=== PATIENT | female | born 1960 | race Caucasian/White ===

== ENCOUNTER → 2016-10-21 | Outpatient (CLI) | payer BC ==
--- NOTE | 2016-10-21 14:26 | MY ---
EXAMINATION: Bilateral digital mammography utilizing CAD. HISTORY: Screening exam. Comparison is made to previous studies dated 10/18/2015, 10/11/2014. FINDINGS: Bilateral scattered fibroglandular densities. No suspicious calcifications, masses or ar chitectural distortions. No pathologic appearing lymph nodes, no abnormal skin thickening or nippl e inversion. CAD highlighted regions appear normal at this time. IMPRESSION: BI-RADS category I - negative mammogram. Continued screening according to ACR-ACS gu idelines suggested. THE FALSE-NEGATIVE RATE OF MAMMOGRAM IS APPROXIMATELY 10%. MANAGEMENT OF A PALPABLE ABNORMALITY MUST BE BASED UPON CLINICAL GROUNDS. SENSITIVITY FOR DETECTION OF ABNORMALITIES IN DENSE BREASTS IS LOW. NOTE: A letter will be sent to the patient regarding findings. [facility] -- KARLEY Hodgson [phone] - FAX [phone]
== END ==
LOC: MW.MAM 09:50
PROVIDERS: ATTEND Nurse Practitioner Women's Health
DX: Z12.31 Encounter for screening mammogram for malignant neoplasm of breast (principal)
CPT/HCPCS: G0202; G0202-26

== ENCOUNTER → 2016-11-22 | Outpatient (CLI) | payer BC | LOC: MW.CHOBGYN 13:59 | PROVIDERS: ATTEND Nurse Practitioner Women's Health | DX: R10.13 Epigastric pain (principal) | CPT/HCPCS: 36415; 85025 ==

== ENCOUNTER → 2016-11-26 | Outpatient (CLI) | payer BC | END | disposition home or self-care (01) | LOC: MW.CHOBGYN 16:04 | PROVIDERS: ATTEND Nurse Practitioner Women's Health | DX: R10.13 Epigastric pain (principal) | CPT/HCPCS: 87338 ==

== ENCOUNTER 2017-01-17 08:22 | Day surgery (SDC) | payer BC ==
[~2017-01-17 08:22] MED LIST: Lactated Ringers 1,000 ML IV SCH; Lidocaine 2% 5 ML SDV ONE; Propofol 200 MG/20 ML SDV ONE
--- NOTE | 2017-01-17 09:08 | PCM.PREANE ---
Preanesthetic Assessment - Anesthesia/Transfusion/Family Hx Anesthesia History: Prior Anesthesia Reaction Other Type of Anesthesia Reaction Comment: very claustrophobic, no masks Family History of Anesthesia Reaction: No Transfusion History: No Prior Transfusion(s) - Review of Systems General: No Symptoms Pulmonary: No Symptoms Cardiovascular: No Symptoms Gastrointestinal: No symptoms Neurological: No Symptoms Other: Reports: None - Physical Assessment NPO Status Date: 01/16/17 NPO Status Time: 22:30 O2 Sat by Pulse Oximetry: 97 Respiratory Rate: 16 Vital Signs: Last Vital Signs Temp 36.6 C 01/17/17 08:53 Pulse 79 01/17/17 08:53 Resp 16 01/17/17 08:53 BP 136/86 01/17/17 08:53 Pulse Ox 97 01/17/17 08:53 Height: 1.7 m Weight: 111.584 kg ASA Class: 2 Mental Status: Alert & Oriented x3 Airway Class: Mallampati = 2 Dentition: Reports: Normal Dentition ROM/Head Extension: Full Lungs: Clear to auscultation, Normal respiratory effort Cardiovascular: Regular Rate, Regular Rhythm - Allergies Allergies/Adverse Reactions: Allergies Allergy/AdvReac Type Severity Reaction Status Date / Time bupropion HCl Allergy Nausea and Verified 01/14/17 14:01 [From Wellbutrin] Vomiting venlafaxine HCl Allergy Depression Verified 01/14/17 14:01 [From Effexor] - Anesthesia Plan Pre-Op Medication Ordered: None - Acknowledgements Anesthesia Type Planned: MAC Pt an Appropriate Candidate for the Planned Anesthesia: Yes Alternatives and Risks of Anesthesia Discussed w Pt/Guardian: Yes Pt/Guardian Understands and Agrees with Anesthesia Plan: Yes PreAnesthesia Questionnaire HEENT History: Reports: Allergic Rhinitis Other HEENT History: wears glasses Cardiovascular History: Reports: Hypertension Respiratory History: Reports: Asthma, Sleep Apnea Gastrointestinal History: Reports: Chronic Diarrhea, GERD, Hemorrhoids Genitourinary History: Reports: None Other Genitourinary History: vaiginal cyst CERTIFIED NUTRITIONIST History: Reports: None Musculoskeletal History: Reports: Fracture, Fibromyalgia Other Musculoskeletal History: hx of fx toe Neurological History: Reports: Headaches, Chronic Other Neuro History: has stress headaches, hx of motion sickness Psychiatric History: Reports: Anxiety, Depression, Other (See Below) Other Psychiatric History: very claustrophobic Endocrine/Metabolic History: Reports: Obesity/BMI 30+ Hematologic History: Reports: None Immunologic History: Reports: None Oncologic (Cancer) History: Reports: None Dermatologic History: Reports: None - Past Surgical History Head Surgeries/Procedures: Reports: None HEENT Surgical History: Reports: Tonsillectomy GI Surgical History: Reports: Colonoscopy Female Surgical History: Reports: Hysterectomy, Salpingo-Oophorectomy, Other (See Below) Other Female Surgeries/Procedures: excision of cyst from vaginal wall Musculoskeletal Surgical History: Reports: None - SUBSTANCE USE Smoking Status *Q: Former Smoker Recreational Drug Use History: No - HOME MEDS Home Medications: Home Meds Citalopram Hydrobromide [Celexa] 40 mg PO BEDTIME 10/20/15 [History] Losartan [Cozaar] 100 mg PO DAILY 10/20/15 [History] Vit D3/Folic Acid/B2/B6/B12 [Folgard Tablet] 1 each PO 10/20/15 [History] Albuterol [Ventolin HFA] 1 - 2 puff INH Q4H PRN 01/14/17 [History] Calcium Carbonate/Vitamin D3 [Calcium 1,000 + D3 Caplet] 1 tab PO BID 01/14/17 [ History] Hydrochlorothiazide 12.5 mg PO BID 01/14/17 [History] L.acidoph,Paracasei, B.lactis [Probiotic] 1 cap PO DAILY 01/14/17 [History] LORazepam 0.5 - 1 mg PO TID PRN 01/14/17 [History] Montelukast Sodium 10 mg PO DAILY 01/14/17 [History] Omeprazole 40 mg PO DAILY 01/14/17 [History] Sucralfate [Carafate] 1,000 mg PO QID 01/14/17 [History] Vitamin B Complex 1 tab PO BID 01/14/17 [History] - CURRENT (IN HOUSE) MEDS Current Meds: Current Medications Lactated Ringer's (Ringers, Lactated) 1,000 mls @ 125 mls/hr IV ASDIRECTED SANDRA Last Admin: 01/17/17 08:46 Dose: 125 mls/hr Discontinued Medications Lidocaine (Xylocaine-Mpf 2%) Confirm Administered Dose 5 ml .ROUTE .STK-MED ONE Stop: 01/17/17 07:35 Propofol (Diprivan 20 Ml) Confirm Administered Dose 400 mg .ROUTE .STK-MED ONE Stop: 01/17/17 07:36
[2017-01-17] MEDS ORDERED: Propofol 200 MG/20 ML SDV ONE ×2 (09:50→10:03)
[2017-01-17] MEDS ORDERED: Lactated Ringers 1,000 ML IV SCH (10:30)
--- NOTE | 2017-01-17 10:30 | PCM.OPNOTE ---
- General Post-Op/Procedure Note Date of Surgery/Procedure: 01/17/17 Operative Procedure(s): Esophagogastroduodenoscopy with duodenal and gastric biopsy. Colonoscopy. Pre Op Diagnosis: Epigastric pain. Rectal bleeding. Post-Op Diagnosis: Duodenitis and gastritis. No evidence of colonic neoplasia. Anesthesia Technique: MAC (ASA II) Primary Surgeon: Jose M Castro Condition: Good Free Text/Narrative:: DICTATION 522540 and [id number] CPT code 06203 and 51449
--- NOTE | 2017-01-17 10:49 | PCM48HPAN ---
Post Anesthesia Note - EVALUATION WITHIN 48HRS OF ANESTHETIC Vital Signs in Normal Range: Yes Patient Participated in Evaluation: Yes Respiratory Function Stable: Yes Airway Patent: Yes Cardiovascular Function Stable: Yes Hydration Status Stable: Yes Pain Control Satisfactory: Yes Nausea and Vomiting Control Satisfactory: Yes Mental Status Recovered: Yes
--- NOTE | 2017-01-17 10:49 | PCM.POSTAN ---
POST ANESTHESIA ASSESSMENT - MENTAL STATUS Mental Status: alert, oriented - RESPIRATORY Respiratory Status: respiratory rate WNL, airway patent, O2 saturation stable - CARDIOVASCULAR CV Status: pulse rate WNL, blood pressure stable - GASTROINTESTINAL GI Status: no symptoms - PAIN Pain Score: 0 - POST OP HYDRATION Hydration Status: adequate & stable
[2017-01-17 10:58] VITALS: BP 132/59
--- NOTE | 2017-01-17 14:54 | OR ---
SURGEON: Jose M Castro M.D. DATE OF PROCEDURE: 01/17/2017 OPERATION PERFORMED: Colonoscopy. ANESTHESIA: MAC. ASA CLASSIFICATION: II. PREOPERATIVE DIAGNOSIS: Rectal bleeding. POSTOPERATIVE DIAGNOSIS: No acute colonic neoplasia. DESCRIPTION OF PROCEDURE: With the patient having completed esophagogastroduodenoscopy with biopsy, she was now positioned in the left lateral decubitus position. The colonoscope was inserted into the rectum and advanced with minimal difficulty to the cecum. The cecum was identified by internal landmarks and external pressure. The colonoscope was retroflexed to visualize the ascending colon from below, then straightened, and slowly withdrawn. The cecum, ascending colon, hepatic flexure, transverse colon, splenic flexure, descending colon, sigmoid colon, and rectum were very well visualized. No tumors, polyps, diverticula, or angiodysplastic changes were noted. Once the colonoscope was withdrawn to the rectum, it was retroflexed to visualize the anal orifice from above. No polyps or tumors were seen and there were no acute hemorrhoidal changes. The colonoscope was then straightened, the rectum aspirated, and the colonoscope removed. The patient tolerated the procedure well and was taken to recovery room in stable condition. KIKI TANNER /[id number]
--- NOTE | 2017-01-17 14:57 | OR ---
SURGEON: Jose M Castro M.D. DATE OF PROCEDURE: 01/17/2017 OPERATION PERFORMED: Esophagogastroduodenoscopy with biopsy. ANESTHESIA: MAC. ASA CLASSIFICATION: II. PREOPERATIVE DIAGNOSIS: Persistent epigastric pain. POSTOPERATIVE DIAGNOSIS: Mild duodenitis and gastritis. DESCRIPTION OF PROCEDURE: The patient was taken to the endoscopy room and positioned on the endoscopy table in the supine position. Time-out was called for appropriate identification of the patient and procedure. Monitored anesthesia care was provided. The bite block was placed between the patient's teeth. The gastroscope was inserted through the bite block and advanced through the esophagus and stomach into the duodenum where examination was carried out in a retrograde fashion. The duodenum does show some mild inflammatory changes. Duodenal biopsies were obtained. One polyp was encountered in the duodenum and this was also removed with cold biopsy forceps. The gastroscope was withdrawn into the stomach and antral biopsies were obtained to look for the presence of the Helicobacter pylori. The patient did demonstrate a mild gastritis. The gastroscope was then retroflexed to visualize the proximal stomach. The patient does have a hiatal hernia. No ulcers were seen proximally and no tumors were noted. The gastroscope was then straightened, the stomach aspirated, and the scope slowly withdrawn. The patient does have a hiatal hernia that can also be seen from above. The GE junction was well defined and shows no acute inflammatory changes. The esophagus demonstrated good contractility. No mid or proximal lesions were seen. The gastroscope was then further withdrawn. The vocal cords were briefly visualized, noted to move symmetrically. No obvious vocal cord lesions were identified. The gastroscope was then removed with the patient having tolerated this portion of the procedure well. Following colonoscopy, she was taken to recovery room in stable condition. KIKI TANNER /[id number]
== END 2017-01-17 11:13 | disposition home or self-care (01) ==
LOC: MW.SDS 08:22
PROVIDERS: ATTEND Surgery
PROC: 0DB98ZX Excision of Duodenum, Via Natural or Artificial Opening Endoscopic, Diagnostic (ICD-10-PCS; principal; 2017-01-17)
PROC: 0DB68ZX Excision of Stomach, Via Natural or Artificial Opening Endoscopic, Diagnostic (ICD-10-PCS; 2017-01-17)
PROC: 0DJD8ZZ Inspection of Lower Intestinal Tract, Via Natural or Artificial Opening Endoscopic (ICD-10-PCS; 2017-01-17)
DX: K29.50 Unspecified chronic gastritis without bleeding (principal); K31.7 Polyp of stomach and duodenum; K31.89 Other diseases of stomach and duodenum; K44.9 Diaphragmatic hernia without obstruction or gangrene; K21.9 Gastro-esophageal reflux disease without esophagitis; F41.9 Anxiety disorder, unspecified; J45.909 Unspecified asthma, uncomplicated; M79.7 Fibromyalgia; I10 Essential (primary) hypertension; E66.9 Obesity, unspecified; G47.30 Sleep apnea, unspecified; E55.9 Vitamin D deficiency, unspecified; E53.8 Deficiency of other specified B group vitamins; F32.9 Major depressive disorder, single episode, unspecified; Z88.8 Allergy status to other drugs, medicaments and biological substances; Z79.899 Other long term (current) drug therapy; Z98.51 Tubal ligation status; Z90.710 Acquired absence of both cervix and uterus; Z90.722 Acquired absence of ovaries, bilateral; Z90.89 Acquired absence of other organs; Z98.890 Other specified postprocedural states; Z80.0 Family history of malignant neoplasm of digestive organs; Z87.891 Personal history of nicotine dependence; Z68.38 Body mass index [BMI] 38.0-38.9, adult
CPT/HCPCS: 43239; 45378; 88305; 88312; J7120; 00740; J2704

== ENCOUNTER 2017-05-08 06:31 | Day surgery (SDC) | payer BC ==
[~2017-05-08 06:31] MED LIST changes: -Lidocaine 2% 5 ML SDV ONE; -Propofol 200 MG/20 ML SDV ONE; +cefOXitin 2 GM in Premix Bag 1 BAG IV ONE
[2017-05-08] MEDS ORDERED: ceFAZolin 1 GM Vial ONE (07:17)
[2017-05-08] MEDS ORDERED: Bupivacaine 0.5% 10 ML SDV ONE (07:17)
[2017-05-08] MEDS ORDERED: Midazolam 1 MG/ML 2 ML SDV ONE (07:28)
[2017-05-08] MEDS ORDERED: Propofol 200 MG/20 ML SDV ONE (07:28)
[2017-05-08] MEDS ORDERED: Lidocaine 2% 5 ML SDV ONE (07:28)
[2017-05-08] MEDS ORDERED: fentaNYL 100 MCG/2 ML SDV ONE (07:28)
[2017-05-08] MEDS ORDERED: Ketorolac 30 MG/ML SDV ONE (07:29)
[2017-05-08] MEDS ORDERED: Succinylcholine/Normal Saline 200 MG/10 ML Syringe ONE (07:29)
[2017-05-08] MEDS ORDERED: Neostigmine Methylsulfate 1 MG/ML 5 ML Syringe ONE (07:29)
[2017-05-08] MEDS ORDERED: Ondansetron 4 MG/2 ML SDV ONE ×2 (07:29→08:15)
[2017-05-08] MEDS ORDERED: Scopolamine 1.5 MG Transdermal Patch TRDERM PRN (07:40)
--- NOTE | 2017-05-08 07:40 | PCM.PREANE ---
Preanesthetic Assessment - Anesthesia/Transfusion/Family Hx Anesthesia History: Prior Anesthesia Without Reaction Other Type of Anesthesia Reaction Comment: states she "gets nauseated after surgery" Family History of Anesthesia Reaction: No Transfusion History: No Prior Transfusion(s) Intubation History: Unknown - Review of Systems General: No Symptoms Pulmonary: No Symptoms Cardiovascular: No Symptoms Gastrointestinal: Abdominal Pain Neurological: No Symptoms Other: Reports: None - Physical Assessment O2 Sat by Pulse Oximetry: 98 Respiratory Rate: 16 Vital Signs: Last Vital Signs Temp 36.1 C 05/08/17 06:47 Pulse 62 05/08/17 06:47 Resp 16 05/08/17 06:47 BP 120/65 05/08/17 06:47 Pulse Ox 98 05/08/17 06:47 Weight: 107.501 kg ASA Class: 3 Mental Status: Alert & Oriented x3 Airway Class: Mallampati = 3 Dentition: Reports: Normal Dentition Thyro-Mental Finger Breadths: 3 Mouth Opening Finger Breadths: 2 ROM/Head Extension: Full Lungs: Clear to Auscultation, Normal Respiratory Effort Cardiovascular: Regular Rate, Regular Rhythm - Allergies Allergies/Adverse Reactions: Allergies Allergy/AdvReac Type Severity Reaction Status Date / Time bupropion HCl Allergy Nausea and Verified 01/14/17 14:01 [From Wellbutrin] Vomiting venlafaxine HCl Allergy Depression Verified 01/14/17 14:01 [From Effexor] - Blood Blood Available: No - Anesthesia Plan Pre-Op Medication Ordered: None Beta Jose Alfredo: Metoprolol Med Last Dose Date: 05/07/17 Med Last Dose Time: 19:00 - Acknowledgements Anesthesia Type Planned: General Anesthesia Pt an Appropriate Candidate for the Planned Anesthesia: Yes Alternatives and Risks of Anesthesia Discussed w Pt/Guardian: Yes Pt/Guardian Understands and Agrees with Anesthesia Plan: Yes PreAnesthesia Questionnaire HEENT History: Reports: Allergic Rhinitis, Other (See Below) Other HEENT History: wears glasses Cardiovascular History: Reports: Arrhythmia (paroxysmal atrial tachy last month , cardiac tests OK), Hypertension Respiratory History: Reports: COPD, Sleep Apnea, SOB Other Respiratory History: "moderate COPD", does not use CPAP Gastrointestinal History: Reports: Chronic Constipation, GERD, Hemorrhoids Genitourinary History: Reports: None ENGLISH ADJUNCT FACULTY History: Reports: Musculoskeletal History: Reports: Fracture, Fibromyalgia Other Musculoskeletal History: hx of fx toe Neurological History: Reports: Headaches, Chronic Other Neuro History: has stress headaches, hx of motion sickness Psychiatric History: Reports: Anxiety, Depression, Other (See Below) Other Psychiatric History: very claustrophobic Endocrine/Metabolic History: Reports: Obesity/BMI 30+ Hematologic History: Reports: None Immunologic History: Reports: None Oncologic (Cancer) History: Reports: None Dermatologic History: Reports: None - Past Surgical History Head Surgeries/Procedures: Reports: None HEENT Surgical History: Reports: Tonsillectomy GI Surgical History: Reports: Colonoscopy, EGD Female Surgical History: Reports: Hysterectomy, Salpingo-Oophorectomy, Other (See Below) Other Female Surgeries/Procedures: excision of cyst from vaginal wall Musculoskeletal Surgical History: Reports: None - SUBSTANCE USE Smoking Status *Q: Former Smoker (quit many years ago) Recreational Drug Use History: No - HOME MEDS Home Medications: Home Meds Citalopram Hydrobromide [Celexa] 40 mg PO BEDTIME 10/20/15 [History] Losartan [Cozaar] 100 mg PO DAILY 10/20/15 [History] Vit D3/Folic Acid/B2/B6/B12 [Folgard Tablet] 1 each PO DAILY 10/20/15 [History] Albuterol [Ventolin HFA] 1 - 2 puff INH Q4H PRN 01/14/17 [History] Calcium Carbonate/Vitamin D3 [Calcium 1,000 + D3 Caplet] 1 tab PO BID 01/14/17 [ History] Hydrochlorothiazide 0.5 tab PO BID 01/14/17 [History] L.acidoph,Paracasei, B.lactis [Probiotic] 1 cap PO DAILY 01/14/17 [History] LORazepam 0.5 - 1 mg PO TID PRN 01/14/17 [History] Montelukast Sodium 10 mg PO DAILY 01/14/17 [History] Omeprazole 40 mg PO DAILY 01/14/17 [History] Vitamin B Complex 1 tab PO BID 01/14/17 [History] Tiotropium [place] [Spiriva Respimat] 1 puff INH DAILY 05/06/17 [History] - CURRENT (IN HOUSE) MEDS Current Meds: Current Medications Lactated Ringer's (Ringers, Lactated) 1,000 mls @ 125 mls/hr IV ASDIRECTED SANDRA Discontinued Medications Bupivacaine HCl (Sensorcaine-Mpf 0.5%) Confirm Administered Dose 30 ml .ROUTE .STK-MED ONE Stop: 05/08/17 07:18 Cefazolin Sodium (Ancef) Confirm Administered Dose 1 gm .ROUTE .STK-MED ONE Stop: 05/08/17 07:18 Fentanyl (Sublimaze) Confirm Administered Dose 300 mcg .ROUTE .STK-MED ONE Stop: 05/08/17 07:29 Glycopyrrolate () Confirm Administered Dose 1 mg .ROUTE .STK-MED ONE Stop: 05/08/17 07:30 Cefoxitin Sodium 2 gm/ Premix 50 mls @ 100 mls/hr IV ONETIME ONE Stop: 05/08/17 06:29 Cefoxitin Sodium (Mefoxin In Dextrose,Iso-Osm 2 Gm/50 Ml) Confirm Administered Dose 50 mls @ as directed .ROUTE .STK-MED ONE Stop: 05/08/17 07:27 Ketorolac Tromethamine (Toradol) Confirm Administered Dose 30 mg .ROUTE .STK- MED ONE Stop: 05/08/17 07:30 Lidocaine (Xylocaine-Mpf 2%) Confirm Administered Dose 10 ml .ROUTE .STK-MED ONE Stop: 05/08/17 07:29 Midazolam HCl (Versed 1 Mg/Ml) Confirm Administered Dose 2 mg .ROUTE .STK-MED ONE Stop: 05/08/17 07:29 Neostigmine Methylsulfate (Neostigmine) Confirm Administered Dose 5 mg .ROUTE .STK-MED ONE Stop: 05/08/17 07:30 Ondansetron HCl (Zofran) Confirm Administered Dose 4 mg .ROUTE .STK-MED ONE Stop: 05/08/17 07:30 Propofol (Diprivan 20 Ml) Confirm Administered Dose 400 mg .ROUTE .STK-MED ONE Stop: 05/08/17 07:29 Succinylcholine Chloride (Succinylcholine In Ns Pf) Confirm Administered Dose 200 mg .ROUTE .STK-MED ONE Stop: 05/08/17 07:30
[2017-05-08] MEDS ORDERED: HYDROmorphone 2 MG/ML Syringe ONE (08:18)
[2017-05-08] MEDS ORDERED: ePHEDrine 50 MG/ML SDV ONE (08:27)
[2017-05-08] MEDS ORDERED: HYDROmorphone 2 MG/ML Syringe IVPUSH ONE (08:39)
[2017-05-08] MEDS ORDERED: fentaNYL 100 MCG/2 ML SDV IVPUSH PRN (08:39)
[2017-05-08] MEDS ORDERED: Labetalol 100 MG/20 ML MDV ONE (08:40)
[2017-05-08] MEDS ORDERED: Acetaminophen/HYDROcodone 325-5 MG Tab PO PRN (09:16)
[2017-05-08] MEDS ORDERED: Morphine 10 MG/ML Syringe IVPUSH PRN (09:16)
[2017-05-08] MEDS ORDERED: Benzocaine/Cetylpyridinium/Menthol Lozenge MUCMEM PRN (09:22)
--- NOTE | 2017-05-08 09:44 | PCM.POSTAN ---
POST ANESTHESIA ASSESSMENT - MENTAL STATUS Mental Status: Alert, Oriented - RESPIRATORY Respiratory Status: Respiratory Rate WNL, Airway Patent, O2 Saturation Stable - CARDIOVASCULAR CV Status: Pulse Rate WNL - GASTROINTESTINAL GI Status: No Symptoms - PAIN Pain Score: 0 - POST OP HYDRATION Hydration Status: Adequate & Stable - OBSERVATIONS Free Text/Narrative:: no anesthesia problems
--- NOTE | 2017-05-08 10:06 | PCM.OPNOTE ---
- General Post-Op/Procedure Note Date of Surgery/Procedure: 05/08/17 Operative Procedure(s): Laparoscopic cholecystectomy Pre Op Diagnosis: Symptomatic cholelithiasis Post-Op Diagnosis: Same Anesthesia Technique: General ET Tube (ASA III) Primary Surgeon: Jose M Castro Program Research Specialist: Rodrigo Cao Fluid Replacement, Intraop: 1,400 EBL in mLs: 10 Condition: Good Free Text/Narrative:: Intake & Output 05/07/17 05/08/17 05/08/17 19:59 03:59 11:59 Intake Total 1550 Output Total 225 Balance 1325 Dictation [id number] CPT CODE [id number]
--- NOTE | 2017-05-08 10:13 | OR ---
SURGEON: Jose M Castro M.D. DATE OF PROCEDURE: 05/08/2017 OPERATION PERFORMED: Laparoscopic cholecystectomy. PAINTING MANAGER: Dr. Cao, PGY-2. ANESTHESIA: General endotracheal. ASA CLASSIFICATION: III. PREOPERATIVE DIAGNOSIS: Symptomatic cholelithiasis. POSTOPERATIVE DIAGNOSIS: Symptomatic cholelithiasis. ESTIMATED BLOOD LOSS: 10 mL. INTRAOPERATIVE FLUID REPLACEMENT: 1400 mL of crystalloid. DESCRIPTION OF PROCEDURE: The patient was taken to the operating room and placed on the operating table in the supine position. Time-out was called for appropriate identification of the patient and procedure. Thigh-high TEDs and sequential compression boots were placed. Following satisfactory attainment of general endotracheal anesthesia, a Boone catheter was placed in the patient's urinary bladder. The abdomen was prepped with DuraPrep solution. Sterile drapes were applied. The skin just below the umbilicus was infiltrated with 0.5% Marcaine solution. The skin incision was made and deepened into the subcutaneous tissue obtaining hemostasis with the use of electrocautery. The Veress needle was introduced into the peritoneal cavity. Saline drop test was positive. Carbon dioxide pneumoperitoneum was established with the release set at 13 cm of water. Once satisfactory pneumoperitoneum was established, a 12 mm subxiphoid, 5 mm midclavicular, and 5 mm anterior axillary ports were placed. Each incision was preemptively infiltrated with 0.5% Marcaine solution. The patient was now positioned with her feet down and rolled to the left. The gallbladder was grasped and the cholecystohepatic triangle was dissected free identifying the cystic duct and cystic artery in serial fashion. Critical view of each structure was obtained before hemoclipping. After these structures had been hemoclipped and divided with the laparoscopic Metzenbaum scissor, the gallbladder was dissected away from its bed using electrocautery. There was no spill of bile or stone. No bleeding was noted. Once the gallbladder was amputated, this was placed in an Endopouch. The bed of the gallbladder was inspected for hemostasis and bile leak. Hemostasis was satisfactory. No bile leak was identified. The right hemidiaphragm was then irrigated with 250 mL of saline containing 20 mL of 0.5% Marcaine solution. That fluid was left in place. The Endopouch containing gallbladder was removed through the 12 mm subxiphoid port. It was necessary to enlarge the incision slightly to remove the gallbladder. Under camera vision, a 5 mm midclavicular and a 5 mm anterior axillary ports were removed, and finally the infraumbilical camera and port were removed. The wounds were inspected for hemostasis. No bleeding was noted. The subxiphoid and infraumbilical incisions were closed in 2 layers approximating the subcutaneous tissue with 3-0 Polysorb and the skin with subcuticular 4-0 Monocryl. The midclavicular and anterior axillary incisions were closed with subcuticular 4-0 Monocryl. All incisions were Steri-Stripped and dressed with sterile Tegaderm pads. Sponge, needle, and instrument counts were all correct. Boone catheter was removed prior to emergence from anesthesia. Following emergence from anesthesia and extubation, the patient was taken to recovery room in stable condition. KIKI TANNER /[id number]
--- NOTE | 2017-05-08 10:16 | PCM.OPNOTE ---
- General Post-Op/Procedure Note Date of Surgery/Procedure: 05/08/17 Operative Procedure(s): Laparoscopic cholecystectomy Pre Op Diagnosis: Symptomatic cholelithiasis Post-Op Diagnosis: Same Anesthesia Technique: General ET Tube (ASA III) Primary Surgeon: Jose M Castro Conductor Symphonic Orchestra: Rodrigo Cao Fluid Replacement, Intraop: 1,400 EBL in mLs: 10 Condition: Good Free Text/Narrative:: Intake & Output 05/07/17 05/08/17 05/08/17 19:59 03:59 11:59 Intake Total 1550 Output Total 225 Balance 1325 Dictation [id number] CPT CODE [id number]
[2017-05-08] MEDS ORDERED: Midazolam 1 MG/ML 2 ML SDV IVPUSH ONE (10:34)
[2017-05-08 13:11] VITALS: BP 107/49
== END 2017-05-08 16:43 | disposition home or self-care (01) ==
LOC: MW.SDS 06:31
PROVIDERS: ATTEND Surgery
DX: K81.1 Chronic cholecystitis (principal); F41.9 Anxiety disorder, unspecified; J45.909 Unspecified asthma, uncomplicated; F33.0 Major depressive disorder, recurrent, mild; I10 Essential (primary) hypertension; E66.9 Obesity, unspecified; E55.9 Vitamin D deficiency, unspecified; E53.8 Deficiency of other specified B group vitamins; Z79.899 Other long term (current) drug therapy; Z90.710 Acquired absence of both cervix and uterus; Z88.8 Allergy status to other drugs, medicaments and biological substances; Z98.890 Other specified postprocedural states; Z98.51 Tubal ligation status; Z87.891 Personal history of nicotine dependence; Z68.30 Body mass index [BMI] 30.0-30.9, adult
CPT/HCPCS: 47562; A9270; J0690; J1170; J1885; J2250; J2405; J3010; 00790; 88304; J2704